=== PATIENT | male | born 2000 | race Hispanic/Latino ===

== ENCOUNTER → 2023-11-24 13:30 | Outpatient (REF) | payer BC, SELFPAY ==
[2023-11-24 15:49] LABS: ALT (SGPT) 88 U/L (0-50); AST (SGOT) 56 U/L (17-59); Albumin 5.3 g/dl (3.5-5.0); Alkaline Phosphatase 105 U/L (38-126); Direct Bilirubin 0.2 mg/dl (0.0-0.4); Total Bilirubin 0.9 mg/dl (0.2-1.3); Total Protein 8.5 g/dl (6.3-8.2)
[2023-11-24 16:21] LABS: TSH Reflex To Free T4 2.84 uIU/ml (0.47-4.68)
== END ==
LOC: REG 13:30
PROVIDERS: ATTENDING PHYSICIAN Family Medicine
DX: R79.89 Other specified abnormal findings of blood chemistry (principal); R74.01 Elevation of levels of liver transaminase levels
CPT/HCPCS: 36415; 80076; 84443

== ENCOUNTER → 2023-12-29 08:00 | Outpatient (REF) | payer BC, SELFPAY | LOC: HWRAD 08:00 | PROVIDERS: ATTENDING PHYSICIAN Family Medicine; FAMILY PHYSICIAN Family Medicine | DX: R74.01 Elevation of levels of liver transaminase levels (principal) | CPT/HCPCS: 76700 ==